=== PATIENT | female | born 1975 | race Caucasian/White ===

== ENCOUNTER → 2017-05-21 | Outpatient (CLI) | payer OTHER ==
[~2017-05-21] MED LIST: Fioricet 325 MG1 TAB PO; LOMOTIL 0.025 M1 TA1 PO; MOTRIN800 MG PO; ZOFRAN ODT4 MG SL; ZOLOFT50 MG PO
[2017-05-21 16:18] LABS: BASO % 0.4 % (0.0-1.0); EOS # 0.1 10*3/uL (0.0-0.4); EOS % 2.2 % (1.0-4.0); HEMATOCRIT 40.4 % (37.0-47.0); HEMOGLOBIN 13.3 g/dl (12.0-16.0); LYMPH # 1.6 10*3/uL (1.3-4.4); LYMPH % 33.9 % (27.0-41.0); MEAN CELL VOLUME 89.8 fl (81.0-99.0); MEAN CORPUSCULAR HGB 29.6 pg (27.0-31.0); MEAN CORPUSCULAR HGB CONC 32.9 g/dl (33.0-37.0); MEAN PLATELET VOLUME 10.5 fl (9.6-12.3); MONO # 0.4 10*3/uL (0.1-1.0); NEUT # 2.6 10*3/uL (2.3-7.9); NEUT % 55.3 % (47.0-73.0); PLATELET COUNT AUTOMATED 219 10*3/uL (130-400); RED CELL DISTRI WIDTH 12.1 % (0-14.5); WHITE BLOOD COUNT 4.6 10*3/uL (4.8-10.8)
[2017-05-21 16:43] LABS: ALBUMIN 3.8 gm/dl (3.1-4.5); ALKALINE PHOSPHATASE 59 U/L (45-117); BUN 11 mg/dl (7-24); CHLORIDE 104 mmol/L (98-107); CHOLESTEROL 221 mg/dL (<200); CREATININE 0.68 mg/dL (0.55-1.02); FREE T4 0.99 ng/dl (0.76-1.46); HDL CHOLESTEROL 51 mg/dl (40-60); POTASSIUM 4.4 mmol/L (3.5-5.1); SGOT/AST 20 IU/L (3-35); SGPT/ALT 21 U/L (12-78); SODIUM 142 mmol/L (136-145)
[2017-05-21 16:48] LABS: LDL CHOLESTEROL 144 mg/dL (9-159); TRIGLYCERIDES 129 mg/dl (<150); VLDL CHOLESTEROL 26 mg/dL (6-40)
[2017-05-21 16:52] LABS: VITAMIN D, 25-HYDROXY 30.6 ng/mL (30-100)
== END | disposition home or self-care (01) ==
LOC: LAB 15:00
PROVIDERS: Internal Medicine
DX: E55.9 Vitamin D deficiency, unspecified (principal); Z13.21 Encounter for screening for nutritional disorder; Z13.220 Encounter for screening for lipoid disorders

== ENCOUNTER → 2017-11-08 | Outpatient (CLI) | payer OTHER ==
[2017-11-08 16:08] LABS: ALBUMIN 3.8 gm/dl (3.1-4.5); ALKALINE PHOSPHATASE 58 U/L (45-117); BUN 13 mg/dl (7-24); CHLORIDE 104 mmol/L (98-107); CHOLESTEROL 215 mg/dL (<200); CREATININE 0.75 mg/dL (0.55-1.02); HDL CHOLESTEROL 53 mg/dl (40-60); LDL CHOLESTEROL 119 mg/dL (9-159); POTASSIUM 3.6 mmol/L (3.5-5.1); SGOT/AST 16 IU/L (3-35); SGPT/ALT 22 U/L (12-78); SODIUM 139 mmol/L (136-145); TOTAL PROTEIN 7.1 gm/dL (6.4-8.2); TRIGLYCERIDES 217 mg/dl (<150); VLDL CHOLESTEROL 43 mg/dL (6-40)
[2017-11-08 16:09] LABS: FREE T4 1.01 ng/dl (0.76-1.46)
[2017-11-08 16:18] LABS: VITAMIN D, 25-HYDROXY 29.3 ng/mL (30-100)
[2017-11-08 16:54] LABS: BASO % 0.5 % (0.0-1.0); EOS # 0.1 10*3/uL (0.0-0.4); EOS % 1.9 % (1.0-4.0); HEMATOCRIT 38.3 % (37.0-47.0); LYMPH # 1.8 10*3/uL (1.3-4.4); LYMPH % 28.4 % (27.0-41.0); MEAN CELL VOLUME 92.3 fl (81.0-99.0); MEAN CORPUSCULAR HGB 28.9 pg (27.0-31.0); MEAN CORPUSCULAR HGB CONC 31.3 g/dl (33.0-37.0); MEAN PLATELET VOLUME 10.8 fl (9.6-12.3); MONO # 0.5 10*3/uL (0.1-1.0); MONO % 7.1 % (3.0-9.0); NEUT % 61.9 % (47.0-73.0); PLATELET COUNT AUTOMATED 250 10*3/uL (130-400); RED BLOOD COUNT 4.15 10*6/uL (4.10-5.10); WHITE BLOOD COUNT 6.4 10*3/uL (4.8-10.8)
== END | disposition home or self-care (01) ==
LOC: LAB 15:33
PROVIDERS: Internal Medicine
DX: Z00.00 Encounter for general adult medical examination without abnormal findings (principal); Z13.1 Encounter for screening for diabetes mellitus; Z13.21 Encounter for screening for nutritional disorder; Z13.220 Encounter for screening for lipoid disorders; R53.81 Other malaise; E55.9 Vitamin D deficiency, unspecified

== ENCOUNTER → 2018-01-25 | Outpatient (CLI) | payer OTHER ==
[~2018-01-25] MED LIST changes: +JUNEL FE 24 TA1 EACH PO; +MEDI-MECLIZINE25 MG PO; +Synthroid,Lev100 MCG PO
== END | disposition home or self-care (01) ==
LOC: US 14:54
DX: D25.9 Leiomyoma of uterus, unspecified (principal); N83.201 Unspecified ovarian cyst, right side; N83.202 Unspecified ovarian cyst, left side

== ENCOUNTER 2018-01-28 08:24 | Emergency (ER) | payer OTHER ==
[~2018-01-28] VITALS: Ht 172.7 cm; Wt 81.6 kg
[~2018-01-28 08:24] MED LIST changes: -JUNEL FE 24 TA1 EACH PO; -MEDI-MECLIZINE25 MG PO; -Synthroid,Lev100 MCG PO
[2018-01-28] MEDS ORDERED: Synthroid,Lev100 MCG PO (08:32)
[2018-01-28] MEDS ORDERED: JUNEL FE 24 TA1 EACH PO (08:33)
[2018-01-28 09:00] LABS: BASO % 0.6 % (0.0-1.0); EOS # 0.1 10*3/uL (0.0-0.4); EOS % 2.7 % (1.0-4.0); HEMATOCRIT 38.8 % (37.0-47.0); HEMOGLOBIN 12.7 g/dl (12.0-16.0); LYMPH # 1.5 10*3/uL (1.3-4.4); LYMPH % 31.4 % (27.0-41.0); MEAN CELL VOLUME 89.2 fl (81.0-99.0); MEAN CORPUSCULAR HGB 29.2 pg (27.0-31.0); MEAN CORPUSCULAR HGB CONC 32.7 g/dl (33.0-37.0); MEAN PLATELET VOLUME 10.4 fl (9.6-12.3); MONO # 0.5 10*3/uL (0.1-1.0); MONO % 9.7 % (3.0-9.0); NEUT # 2.6 10*3/uL (2.3-7.9); NEUT % 55.4 % (47.0-73.0); PLATELET COUNT AUTOMATED 223 10*3/uL (130-400); RED BLOOD COUNT 4.35 10*6/uL (4.10-5.10); RED CELL DISTRI WIDTH 12.2 % (0-14.5); WHITE BLOOD COUNT 4.7 10*3/uL (4.8-10.8)
[2018-01-28 09:18] LABS: ALBUMIN 3.1 gm/dl (3.1-4.5); ALKALINE PHOSPHATASE 49 U/L (45-117); BUN 15 mg/dl (7-24); CHLORIDE 107 mmol/L (98-107); CREATININE 0.69 mg/dL (0.55-1.02); POTASSIUM 4.9 mmol/L (3.5-5.1); SGOT/AST 16 IU/L (3-35); SGPT/ALT 15 U/L (12-78); SODIUM 139 mmol/L (136-145); TOTAL PROTEIN 6.6 gm/dL (6.4-8.2)
[2018-01-28 09:19] LABS: BETA-HCG, QUANT < 1.0 mIU/mL (1-3)
[2018-01-28 09:24] LABS: BILIRUBIN NEGATIVE (NEGATIVE); BLOOD 1+ (NEGATIVE); CLARITY CLEAR (CLEAR); COLOR YELLOW (YELLOW); GLUCOSE NEGATIVE (NEGATIVE); KETONE NEGATIVE (NEGATIVE); LEUKO ESTERASE NEGATIVE (NEGATIVE); NITRITE NEGATIVE (NEGATIVE); UROBILINOGEN 0.2 E.U./dl (0.2-1.0)
[2018-01-28 09:47] LABS: BACTERIA TRACE; WBC 0-2 wbc/hpf (0-5)
[2018-01-28] MEDS ORDERED: MEDI-MECLIZINE25 MG PO (10:22)
[2018-03-15] MEDS ORDERED: ZOFRAN ODT4 MG SL (05:01)
== END 2018-01-28 10:33 | disposition home or self-care (01) ==
LOC: ED 08:24
PROVIDERS: Emergency Medicine
DX: H83.09 Labyrinthitis, unspecified ear (principal); R42 Dizziness and giddiness; R11.0 Nausea; Z79.899 Other long term (current) drug therapy

== ENCOUNTER → 2018-06-09 | Outpatient (CLI) | payer OTHER ==
[~2018-06-09] MED LIST changes: +JUNEL FE 24 TA1 EACH PO; +MEDI-MECLIZINE25 MG PO; +Synthroid,Lev100 MCG PO
== END | disposition home or self-care (01) ==
LOC: US 11:57
DX: R10.2 Pelvic and perineal pain (principal)

== ENCOUNTER → 2018-09-21 | Outpatient (CLI) | payer OTHER ==
[2018-09-21 11:30] LABS: BASO # 0.1 10*3/uL (0.0-0.1); BASO % 0.8 % (0.0-1.0); EOS # 0.3 10*3/uL (0.0-0.4); EOS % 4.3 % (1.0-4.0); HEMATOCRIT 42.9 % (37.0-47.0); HEMOGLOBIN 14.2 g/dl (12.0-16.0); LYMPH # 1.6 10*3/uL (1.3-4.4); LYMPH % 23.8 % (27.0-41.0); MEAN CELL VOLUME 88.1 fl (81.0-99.0); MEAN CORPUSCULAR HGB 29.2 pg (27.0-31.0); MEAN CORPUSCULAR HGB CONC 33.1 g/dl (33.0-37.0); MEAN PLATELET VOLUME 10.3 fl (9.6-12.3); MONO # 0.4 10*3/uL (0.1-1.0); MONO % 6.3 % (3.0-9.0); NEUT # 4.2 10*3/uL (2.3-7.9); NEUT % 64.6 % (47.0-73.0); PLATELET COUNT AUTOMATED 254 10*3/uL (130-400); RED BLOOD COUNT 4.87 10*6/uL (4.10-5.10); RED CELL DISTRI WIDTH 12.6 % (0-14.5); WHITE BLOOD COUNT 6.5 10*3/uL (4.8-10.8)
[2018-09-21 12:00] LABS: ALBUMIN 3.2 gm/dl (3.1-4.5); ALKALINE PHOSPHATASE 60 U/L (45-117); BUN 12 mg/dl (7-24); CHLORIDE 108 mmol/L (98-107); CHOLESTEROL 225 mg/dL (<200); CREATININE 0.68 mg/dL (0.55-1.02); FREE T4 1.12 ng/dl (0.76-1.46); HDL CHOLESTEROL 65 mg/dl (40-60); LDL CHOLESTEROL 137 mg/dL (9-159); POTASSIUM 4.2 mmol/L (3.5-5.1); SGOT/AST 15 IU/L (3-35); SGPT/ALT 19 U/L (12-78); SODIUM 139 mmol/L (136-145); TOTAL PROTEIN 7.3 gm/dL (6.4-8.2); TRIGLYCERIDES 117 mg/dl (<150); VLDL CHOLESTEROL 23 mg/dL (6-40)
[2018-09-21 12:58] LABS: VITAMIN D, 25-HYDROXY 47.1 ng/mL (30-100)
== END | disposition home or self-care (01) ==
LOC: LAB 11:15
PROVIDERS: Internal Medicine
DX: E03.9 Hypothyroidism, unspecified (principal); E78.2 Mixed hyperlipidemia; E55.9 Vitamin D deficiency, unspecified; R73.9 Hyperglycemia, unspecified; K21.0 Gastro-esophageal reflux disease with esophagitis; R03.0 Elevated blood-pressure reading, without diagnosis of hypertension

== ENCOUNTER 2019-03-04 22:43 | Emergency (ER) | payer OTHER ==
[~2019-03-04] VITALS: Ht 172.7 cm; Wt 84.4 kg
[2019-03-04] MEDS ORDERED: SPRINTEC 35 MCG1 TA1 PO (22:47)
[2019-03-04] MEDS ORDERED: ZYRTEC ALLERGY10 MG PO (22:47)
[2019-03-04] MEDS ORDERED: OMEPRAZOLE MAGN20 MG PO (22:47)
[2019-03-04 23:25] LABS: BASO % 0.3 % (0.0-1.0); EOS # 0.1 10*3/uL (0.0-0.4); EOS % 0.8 % (1.0-4.0); HEMATOCRIT 42.2 % (37.0-47.0); HEMOGLOBIN 14.2 g/dl (12.0-16.0); LYMPH # 1.3 10*3/uL (1.3-4.4); LYMPH % 11.3 % (27.0-41.0); MEAN CELL VOLUME 88.3 fl (81.0-99.0); MEAN CORPUSCULAR HGB 29.7 pg (27.0-31.0); MEAN CORPUSCULAR HGB CONC 33.6 g/dl (33.0-37.0); MEAN PLATELET VOLUME 10.3 fl (9.6-12.3); MONO # 0.7 10*3/uL (0.1-1.0); NEUT # 9.4 10*3/uL (2.3-7.9); NEUT % 81.3 % (47.0-73.0); PLATELET COUNT AUTOMATED 232 10*3/uL (130-400); RED BLOOD COUNT 4.78 10*6/uL (4.10-5.10); RED CELL DISTRI WIDTH 11.9 % (0-14.5); WHITE BLOOD COUNT 11.6 10*3/uL (4.8-10.8)
[2019-03-04 23:36] LABS: BILIRUBIN NEGATIVE (NEGATIVE); BLOOD NEGATIVE (NEGATIVE); CLARITY CLEAR (CLEAR); COLOR YELLOW (YELLOW); GLUCOSE NEGATIVE (NEGATIVE); KETONE 1+ (NEGATIVE); LEUKO ESTERASE NEGATIVE (NEGATIVE); NITRITE NEGATIVE (NEGATIVE); UROBILINOGEN 0.2 E.U./dl (0.2-1.0)
[2019-03-04 23:40] LABS: ALBUMIN 3.3 gm/dl (3.1-4.5); ALKALINE PHOSPHATASE 59 U/L (45-117); BUN 13 mg/dl (7-24); CHLORIDE 107 mmol/L (98-107); CREATININE 0.72 mg/dL (0.55-1.02); LIPASE 90 U/L (73-393); POTASSIUM 3.7 mmol/L (3.5-5.1); SGOT/AST 16 IU/L (3-35); SGPT/ALT 19 U/L (12-78); SODIUM 138 mmol/L (136-145); TOTAL PROTEIN 7.4 gm/dL (6.4-8.2)
[2019-03-05 00:06] LABS: BACTERIA TRACE
[2019-03-05] MEDS ORDERED: ZOFRAN4 MG SL (00:13)
== END 2019-03-05 00:38 | disposition home or self-care (01) ==
LOC: ED 22:43
PROVIDERS: Physician Assistant
DX: A08.4 Viral intestinal infection, unspecified (principal); R11.2 Nausea with vomiting, unspecified; K21.9 Gastro-esophageal reflux disease without esophagitis; Z79.899 Other long term (current) drug therapy

== ENCOUNTER → 2019-09-21 | Outpatient (CLI) | payer OTHER ==
[~2019-09-21] MED LIST changes: +OMEPRAZOLE MAGN20 MG PO; +SPRINTEC 35 MCG1 TA1 PO; +ZOFRAN4 MG SL; +ZYRTEC ALLERGY10 MG PO
== END | disposition home or self-care (01) ==
LOC: RAD 11:44
DX: M25.572 Pain in left ankle and joints of left foot (principal)

== ENCOUNTER → 2019-09-22 | Outpatient (CLI) | payer OTHER ==
[2019-09-22 07:26] LABS: BASO % 0.6 % (0.0-1.0); EOS # 0.2 10*3/uL (0.0-0.4); LYMPH # 2.1 10*3/uL (1.3-4.4); LYMPH % 42.7 % (27.0-41.0); MEAN CELL VOLUME 92.6 fl (81.0-99.0); MEAN CORPUSCULAR HGB 29.6 pg (27.0-31.0); MEAN PLATELET VOLUME 10.5 fl (9.6-12.3); MONO # 0.4 10*3/uL (0.1-1.0); NEUT # 2.3 10*3/uL (2.3-7.9); NEUT % 45.5 % (47.0-73.0); PLATELET COUNT AUTOMATED 266 10*3/uL (130-400); RED BLOOD COUNT 4.86 10*6/uL (4.10-5.10); RED CELL DISTRI WIDTH 12.6 % (0-14.5)
[2019-09-22 07:41] LABS: ALBUMIN 3.4 gm/dl (3.1-4.5); ALKALINE PHOSPHATASE 53 U/L (45-117); BUN 16 mg/dl (7-24); CHLORIDE 110 mmol/L (98-107); CREATININE 0.64 mg/dL (0.55-1.02); FREE T4 1.09 ng/dl (0.76-1.46); HDL CHOLESTEROL 64 mg/dl (40-60); POTASSIUM 4.2 mmol/L (3.5-5.1); SGOT/AST 21 IU/L (3-35); SGPT/ALT 25 U/L (12-78); SODIUM 139 mmol/L (136-145); TOTAL PROTEIN 7.5 gm/dL (6.4-8.2); TRIGLYCERIDES 114 mg/dl (<150); VLDL CHOLESTEROL 23 mg/dL (6-40)
[2019-09-22 07:45] LABS: CHOLESTEROL 226 mg/dL (<200); LDL CHOLESTEROL 139 mg/dL (9-159)
== END | disposition home or self-care (01) ==
LOC: LAB 05:00
PROVIDERS: Internal Medicine
DX: Z00.00 Encounter for general adult medical examination without abnormal findings (principal); Z13.220 Encounter for screening for lipoid disorders; Z13.21 Encounter for screening for nutritional disorder; Z13.1 Encounter for screening for diabetes mellitus; E55.9 Vitamin D deficiency, unspecified; E03.9 Hypothyroidism, unspecified

== ENCOUNTER → 2019-10-24 | Outpatient (CLI) | payer OTHER | END | disposition home or self-care (01) | LOC: MAMMO 01:20 | DX: Z12.31 Encounter for screening mammogram for malignant neoplasm of breast (principal) ==

== ENCOUNTER → 2019-10-31 | Outpatient (CLI) | payer OTHER | END | disposition home or self-care (01) | LOC: MAMMO 02:30 | DX: N63.10 Unspecified lump in the right breast, unspecified quadrant (principal) ==

== ENCOUNTER → 2019-12-27 | Outpatient (CLI) | payer OTHER ==
[2019-12-27 14:47] LABS: FREE T4 1.02 ng/dl (0.76-1.46)
[2019-12-27 14:58] LABS: THYROID STIM HORMONE (HS) 1.61 uIU/ml (0.358-4.75)
== END | disposition home or self-care (01) ==
LOC: LAB 14:02
PROVIDERS: ATTEND Internal Medicine
DX: E03.9 Hypothyroidism, unspecified (principal)

== ENCOUNTER 2021-01-30 09:48 | Emergency (ER) | payer OTHER ==
[~2021-01-30] VITALS: Wt 68.0 kg
[2021-01-30 10:03] VITALS: BP 123/79
[2021-01-30 15:11] LABS: BASO % 0.4 % (0.0-1.0); EOS # 0.1 10*3/uL (0.0-0.4); EOS % 1.4 % (1.0-4.0); HEMATOCRIT 41.4 % (37.0-47.0); LYMPH # 1.7 10*3/uL (1.3-4.4); LYMPH % 24.4 % (27.0-41.0); MEAN CELL VOLUME 91.4 fl (81.0-99.0); MEAN CORPUSCULAR HGB 30.2 pg (27.0-31.0); MEAN CORPUSCULAR HGB CONC 33.1 g/dl (33.0-37.0); MEAN PLATELET VOLUME 10.3 fl (9.6-12.3); MONO # 0.5 10*3/uL (0.1-1.0); MONO % 6.6 % (3.0-9.0); NEUT # 4.7 10*3/uL (2.3-7.9); NEUT % 66.9 % (47.0-73.0); PLATELET COUNT AUTOMATED 200 10*3/uL (130-400); RED BLOOD COUNT 4.53 10*6/uL (4.10-5.10); RED CELL DISTRI WIDTH 11.9 % (0-14.5)
[2021-01-30] MEDS ORDERED: ELIQUIS5 M1 PO (15:22)
[2021-01-30 15:30] LABS: ACT PARTIAL THROMBO TIME 25.3 SECONDS (20.0-32.1)
[2021-01-30 15:34] LABS: ALKALINE PHOSPHATASE 47 U/L (45-117); BUN 10 mg/dl (7-24); CHLORIDE 106 mmol/L (98-107); CREATININE 0.56 mg/dL (0.55-1.02); POTASSIUM 3.7 mmol/L (3.5-5.1); SGOT/AST 16 IU/L (3-35); SGPT/ALT 20 U/L (12-78); SODIUM 138 mmol/L (136-145); TOTAL PROTEIN 7.1 gm/dL (6.4-8.2)
== END 2021-01-30 15:50 | disposition home or self-care (01) ==
LOC: ED 09:48 → EDHOLD 14:58 → ED 14:58
PROVIDERS: Physician Assistant
DX: I82.441 Acute embolism and thrombosis of right tibial vein (principal); Z79.899 Other long term (current) drug therapy

== ENCOUNTER → 2021-02-03 | Outpatient (CLI) | payer OTHER ==
[~2021-02-03] MED LIST changes: +ELIQUIS5 M1 PO
[2021-02-04 14:08] LABS: ANTICARDIOLIPIN AB, IGG, QN <9 GPL U/mL (0-14); ANTICARDIOLIPIN AB, IGM, QN <9 MPL U/mL (0-12); CARDIOLIPIN AB IGA <9 APL U/mL (0-11)
[2021-02-05 17:06] LABS: ANTI-THROMBIN III ACTIVITY 123 % (75-135); BETA-2 GLYCOPROTEIN I AB,IGA <9 (0-25); BETA-2 GLYCOPROTEIN I AB,IGG <9 (0-20); BETA-2 GLYCOPROTEIN I AB,IGM <9 (0-32); PLASMIN0GEN ACTIVITY >199 % (70-150); PROTEIN S, FREE 83 % (61-136); PTT-LA 39.5 sec (0.0-51.9)
[2021-02-06 16:07] LABS: LUPUS REFLEX INTERPRETATION Comment: (.)
== END | disposition home or self-care (01) ==
LOC: LAB 11:38
PROVIDERS: ATTEND Obstetrics & Gynecology
DX: I82.409 Acute embolism and thrombosis of unspecified deep veins of unspecified lower extremity (principal)

== ENCOUNTER → 2021-03-26 | Outpatient (CLI) | payer OTHER ==
[2021-03-27 14:09] LABS: ANTICARDIOLIPIN AB, IGG, QN <9 GPL U/mL (0-14); ANTICARDIOLIPIN AB, IGM, QN <9 MPL U/mL (0-12); CARDIOLIPIN AB IGA <9 APL U/mL (0-11)
[2021-03-28 02:06] LABS: PTT-LA 33.7 sec (0.0-51.9)
[2021-03-28 04:06] LABS: BETA-2 GLYCOPROTEIN I AB,IGA <9 (0-25); BETA-2 GLYCOPROTEIN I AB,IGG <9 (0-20); BETA-2 GLYCOPROTEIN I AB,IGM <9 (0-32)
[2021-03-28 08:08] LABS: DVVTMIXRFX CHG
[2021-03-28 09:07] LABS: LUPUS REFLEX INTERPRETATION Comment: (.)
[2021-03-28 10:25] LABS: LUPUS DRVVT 77.4 sec (0.0-47.0)
== END | disposition home or self-care (01) ==
LOC: LAB 12:06
PROVIDERS: ATTEND Internal Medicine Hematology & Oncology
DX: D68.59 Other primary thrombophilia (principal); I82.409 Acute embolism and thrombosis of unspecified deep veins of unspecified lower extremity

== ENCOUNTER → 2021-03-31 | Outpatient (CLI) | payer OTHER | END | disposition home or self-care (01) | LOC: US 00:32 | PROVIDERS: ATTEND Internal Medicine Hematology & Oncology | DX: I82.409 Acute embolism and thrombosis of unspecified deep veins of unspecified lower extremity (principal); D68.59 Other primary thrombophilia ==

== ENCOUNTER 2021-04-25 19:53 | Emergency (ER) | payer OTHER ==
[~2021-04-25] VITALS: Ht 170.1 cm; Wt 79.4 kg
[2021-04-27 13:06] LABS: HEPATITIS B SURFACE AB Reactive (.)
== END 2021-04-25 20:37 | disposition home or self-care (01) ==
LOC: ED 19:53
PROVIDERS: Physician Assistant
DX: S61.230A Puncture wound without foreign body of right index finger without damage to nail, initial encounter (principal); W46.0XXA Contact with hypodermic needle, initial encounter; Y93.89 Activity, other specified; Y92.89 Other specified places as the place of occurrence of the external cause; Y99.8 Other external cause status

== ENCOUNTER → 2021-08-12 | Outpatient (CLI) | payer OTHER ==
[2021-08-14 01:06] LABS: PTT-LA 31.7 sec (0.0-51.9)
[2021-08-14 02:06] LABS: LUPUS REFLEX INTERPRETATION Comment: (.)
== END | disposition home or self-care (01) ==
LOC: LAB 15:45
PROVIDERS: ATTEND Internal Medicine Hematology & Oncology
DX: D68.59 Other primary thrombophilia (principal); I82.409 Acute embolism and thrombosis of unspecified deep veins of unspecified lower extremity

== ENCOUNTER → 2021-10-23 | Outpatient (CLI) | payer OTHER ==
[2021-10-23 07:52] LABS: BASO % 0.8 % (0.0-1.0); EOS # 0.2 10*3/uL (0.0-0.4); EOS % 3.3 % (1.0-4.0); HEMATOCRIT 42.9 % (37.0-47.0); MEAN CELL VOLUME 93.1 fl (81.0-99.0); MEAN CORPUSCULAR HGB 29.9 pg (27.0-31.0); MEAN CORPUSCULAR HGB CONC 32.2 g/dl (33.0-37.0); MEAN PLATELET VOLUME 10.3 fl (9.6-12.3); MONO # 0.5 10*3/uL (0.1-1.0); MONO % 10.2 % (3.0-9.0); NEUT # 2.4 10*3/uL (2.3-7.9); NEUT % 46.5 % (47.0-73.0); PLATELET COUNT AUTOMATED 219 10*3/uL (130-400); RED BLOOD COUNT 4.61 10*6/uL (4.10-5.10); RED CELL DISTRI WIDTH 12.3 % (0-14.5); WHITE BLOOD COUNT 5.2 10*3/uL (4.8-10.8)
[2021-10-23 08:09] LABS: ALKALINE PHOSPHATASE 57 U/L (45-117); BUN 14 mg/dl (7-24); CHLORIDE 106 mmol/L (98-107); CHOLESTEROL 254 mg/dL (<200); CREATININE 0.68 mg/dL (0.55-1.02); FREE T4 1.03 ng/dl (0.76-1.46); LDL CHOLESTEROL 181 mg/dL (9-159); POTASSIUM 4.1 mmol/L (3.5-5.1); SGOT/AST 17 IU/L (3-35); SGPT/ALT 21 U/L (12-78); SODIUM 138 mmol/L (136-145); T3 UPTAKE 37 % (31-39); TOTAL PROTEIN 6.6 gm/dL (6.4-8.2); TRIGLYCERIDES 76 mg/dl (<150)
[2021-10-23 09:03] LABS: VITAMIN D, 25-HYDROXY 23.5 ng/mL (30-100)
== END | disposition home or self-care (01) ==
LOC: LAB 07:25
PROVIDERS: ATTEND Internal Medicine
DX: Z13.1 Encounter for screening for diabetes mellitus (principal); Z13.89 Encounter for screening for other disorder; Z13.29 Encounter for screening for other suspected endocrine disorder; E03.9 Hypothyroidism, unspecified; E55.9 Vitamin D deficiency, unspecified

== ENCOUNTER 2022-01-01 07:51 | Emergency (ER) | payer OTHER ==
[~2022-01-01] VITALS: Ht 172.7 cm; Wt 82.6 kg
[~2022-01-01 07:51] MED LIST changes: -MECLIZINE HCL25 M2 PO
[2022-01-01 10:02] LABS: BASO % 0.4 % (0.0-1.0); EOS # 0.2 10*3/uL (0.0-0.4); EOS % 3.4 % (1.0-4.0); HEMATOCRIT 42.7 % (37.0-47.0); LYMPH # 1.3 10*3/uL (1.3-4.4); LYMPH % 28.3 % (27.0-41.0); MEAN CELL VOLUME 91.6 fl (81.0-99.0); MEAN CORPUSCULAR HGB 29.6 pg (27.0-31.0); MEAN CORPUSCULAR HGB CONC 32.3 g/dl (33.0-37.0); MONO # 0.3 10*3/uL (0.1-1.0); MONO % 7.2 % (3.0-9.0); NEUT # 2.9 10*3/uL (2.3-7.9); NEUT % 60.3 % (47.0-73.0); PLATELET COUNT AUTOMATED 210 10*3/uL (130-400); RED BLOOD COUNT 4.66 10*6/uL (4.10-5.10); RED CELL DISTRI WIDTH 12.4 % (0-14.5); WHITE BLOOD COUNT 4.7 10*3/uL (4.8-10.8)
[2022-01-01 10:42] LABS: ALKALINE PHOSPHATASE 54 U/L (45-117); BUN 13 mg/dl (7-24); CHLORIDE 106 mmol/L (98-107); CREATININE 0.59 mg/dL (0.55-1.02); POTASSIUM 4.1 mmol/L (3.5-5.1); SGOT/AST 24 IU/L (3-35); SGPT/ALT 25 U/L (12-78); SODIUM 138 mmol/L (136-145); TOTAL PROTEIN 7.2 gm/dL (6.4-8.2)
[2022-01-01] MEDS ORDERED: MECLIZINE HCL25 M2 PO (11:13)
== END 2022-01-01 11:36 | disposition home or self-care (01) ==
LOC: ED 07:51
PROVIDERS: Family Medicine
DX: R42 Dizziness and giddiness (principal); H61.23 Impacted cerumen, bilateral; Z79.899 Other long term (current) drug therapy

== ENCOUNTER → 2022-01-01 | Outpatient (CLI) | payer OTHER ==
[~2022-01-01] MED LIST changes: +MECLIZINE HCL25 M2 PO
== END | disposition home or self-care (01) ==
LOC: MAMMO 12-31 18:51
PROVIDERS: ATTEND Internal Medicine
DX: Z12.31 Encounter for screening mammogram for malignant neoplasm of breast (principal)

== ENCOUNTER 2024-10-09 16:50 | Emergency (ER) | payer OTHER ==
[~2024-10-09] VITALS: Ht 172.7 cm; Wt 86.2 kg
[~2024-10-09 16:50] MED LIST changes: +MECLIZINE HCL25 M2 PO
[2024-10-09] MEDS ORDERED: CLOBETASOL PROPIONATE 30 GM TUBE T ONE (17:10)
[2024-10-09] MEDS ORDERED: Albuterol Sulf/Ipratropium 3 ML VIAL NEB ONE (17:15)
[2024-10-09] MEDS ORDERED: diphenhydrAMINE hydrochloride 25 MG CAP PO ONE (17:15)
== END 2024-10-09 18:15 | disposition home or self-care (01) ==
LOC: ED 16:50
DX: T63.441A Toxic effect of venom of bees, accidental (unintentional), initial encounter (principal); L53.0 Toxic erythema; J98.01 Acute bronchospasm; R20.2 Paresthesia of skin; Z79.899 Other long term (current) drug therapy; Y92.89 Other specified places as the place of occurrence of the external cause